=== PATIENT | female | born 1955 | race Caucasian/White ===

== ENCOUNTER → 2023-11-25 08:18 | Outpatient (REF) | payer MEDICARE, SELFPAY | LOC: RAD 08:18 | PROVIDERS: ATTENDING PHYSICIAN Family Medicine | DX: R22.41 Localized swelling, mass and lump, right lower limb (principal) | CPT/HCPCS: 93971 ==

== ENCOUNTER → 2024-03-31 14:22 | Outpatient (REF) | payer MEDICARE, SELFPAY | LOC: WDC 14:22 | PROVIDERS: ATTENDING PHYSICIAN Obstetrics & Gynecology; FAMILY PHYSICIAN Family Medicine | DX: Z12.31 Encounter for screening mammogram for malignant neoplasm of breast (principal) | CPT/HCPCS: 77063; 77067 ==